=== PATIENT | male | born 1990 | race Two or more races ===

== ENCOUNTER 2018-04-28 13:09 | Emergency (ER) | payer MEDICAID ==
[~2018-04-28] VITALS: Ht 167.6 cm; Wt 56.2 kg
[2018-04-28 13:29] VITALS: BP 144/86; Ht 167.6 cm; Wt 56.2 kg
== END 2018-04-28 15:36 | disposition left against medical advice (07) ==
LOC: ED 13:09
DX: Z53.21 Procedure and treatment not carried out due to patient leaving prior to being seen by health care provider (principal)